=== PATIENT | male | born 1990 | race Caucasian/White ===

== ENCOUNTER 2017-01-19 16:16 | Emergency (ER) | payer MEDICAID ==
[~2017-01-19] VITALS: Ht 160 cm; Wt 76.0 kg
[2017-01-19 16:24] VITALS: Ht 160 cm; Wt 76.0 kg
[2017-01-19] MEDS ORDERED: ALBU18HF INHALATION (16:51)
[2017-01-19] MEDS ORDERED: IBUP-1542 PO (16:51)
[2017-01-19] MEDS ORDERED: BENZ100C70 PO (16:51)
--- NOTE | 2017-01-19 17:02 | ERD ---
ER Documentation Chief Complaint Date/Time DATE: 01/19/17 TIME: 16:55 Chief Complaint sore throat x 4 days HPI 26-year-old male patient with no significant past medical history presents to the ED complaining of sore throat that started 4 days ago and had a dry cough earlier today. States that he has been taking Advil with relief of his symptoms. States that he tried taking Robitussin but it did not help with his cough. Denies any chest pain, shortness of breath, wheezing, abdominal pain, nausea, vomiting, diarrhea, rashes. Denies any sick contacts. ROS All systems reviewed and are negative except as per history of present illness. Medications Home Meds Active Scripts Ibuprofen* (Motrin*) 600 Mg Tab, 600 MG PO Q6, #30 TAB Prov:ERASMO HOWE-C 01/19/17 Albuterol Sulfate* (Ventolin HFA*) 18 Gm Hfa.aer.ad, 2 PUFF INHALATION Q4H, #1 INHALER Prov:ERASMO HOWE PA-C 01/19/17 Benzonatate* (Tessalon Perle*) 100 Mg Capsule, 100 MG PO Q8H Y for COUGH, #20 CAP Prov:ERASMO HOWE-C 01/19/17 PMhx/Soc Hx Substance Use: No (unknown) Physical Exam Vitals Vital Signs Date Time Temp Pulse Resp B/P Pulse Ox O2 Delivery O2 Flow Rate FiO2 01/19/17 16:24 99.7 74 18 132/79 97 Physical Exam Const: [id number]-hulnzaglh, well-nourished. In no acute distress. Head: Atraumatic, normocephalic Eyes: Normal Conjunctiva without injection. No purulent discharge. PERRL. EOMI ENT: Normal external ear. Ear canal without erythema. Tympanic membrane pearly simeon without effusion or bulging. Nasal canal clear with normal turbinates. Moist oropharynx without tonsillar exudates. Non-erythematous pharynx. Uvula midline. No drooling. No trismus. Neck: Full range of motion. No meningismus. No cervical lymphadenopathy. Resp: Clear to auscultation bilaterally. No wheezing, rhonchi, rales, or crackles. No accessory muscle use. No retractions. Cardio: Regular rate and rhythm. No murmurs, rubs or gallops. Abd: Soft, non tender, non distended. Normal bowel sounds. No palpable masses. No rebound tenderness. No guarding. Skin: No petechiae or rashes Back: No midline tenderness. No CVA tenderness. Ext: No cyanosis, or edema. Neur: Awake and alert. Psych: Normal Mood and Affect Procedures/MDM This is a 26-year-old male patient with no significant past medical history presents to the ED complaining of sore throat that started 4 days ago. Patient is afebrile and nontoxic-appearing. Patient has normal vital signs. This patient presents to the ED with symptoms consistent with a viral acute upper respiratory infection. Patient is afebrile and has normal vital signs. Patient 's physical exam include lungs which were clear to auscultation and a normal pulse oximetry. There is a low suspicion for a atypical PR, pneumonia, pneumothorax, cardiac tamponade, dental abscess, Daniel's angina, peritonsillar abscess, foreign body aspiration, mastoiditis, retropharyngeal abscess, epiglottitis, meningitis, sepsis or other emergent conditions. Discharge medications: Ibuprofen, Ventolin, Tessalon Perles Follow up with primary care physician in 1-2 days. Instructed patient to return to the ED sooner for any worsening symptoms. Patient's questions were answered. Patient understood and agreed with discharge plan. Patient discharged stable. Departure Diagnosis: Primary Impression: Sore throat Additional Impression: Cough Condition: Stable Patient Instructions: Self-Care for Sore Throats, Uri, Viral, No Abx (Adult) Referrals: [facility] YOU HAVE RECEIVED A MEDICAL SCREENING EXAM AND THE RESULTS INDICATE THAT YOU DO NOT HAVE A CONDITION THAT REQUIRES URGENT TREATMENT IN THE EMERGENCY DEPARTMENT. FURTHER EVALUATION AND TREATMENT OF YOUR CONDITION CAN WAIT UNTIL YOU ARE SEEN IN YOUR DOCTORS OFFICE WITHIN THE NEXT 1-2 DAYS. IT IS YOUR RESPONSIBILITY TO MAKE AN APPOINTMENT FOR FOLOW-UP CARE. IF YOU HAVE A PRIMARY DOCTOR --you should call your primary doctor and schedule an appointment IF YOU DO NOT HAVE A PRIMARY DOCTOR YOU CAN CALL OUR PHYSICIAN REFERRAL HOTLINE AT IF YOU CAN NOT AFFORD TO SEE A PHYSICIAN YOU CAN CHOSE FROM THE FOLLOWING [facility] [address] [facility]. [facility] [address] [facility] [facility] [address] [facility] [address] [facility] [address] [facility]. [facility]. [address] [facility]. [facility] YOU HAVE RECEIVED A MEDICAL SCREENING EXAM AND THE RESULTS INDICATE THAT YOU DO NOT HAVE A CONDITION THAT REQUIRES URGENT TREATMENT IN THE EMERGENCY DEPARTMENT. FURTHER EVALUATION AND TREATMENT OF YOUR CONDITION CAN WAIT UNTIL YOU ARE SEEN IN YOUR DOCTORS OFFICE WITHIN THE NEXT 1-2 DAYS. IT IS YOUR RESPONSIBILITY TO MAKE AN APPOINTMENT FOR FOLOW-UP CARE. IF YOU HAVE A PRIMARY DOCTOR --you should call your primary doctor and schedule and appointment IF YOU DO NOT HAVE A PRIMARY DOCTOR YOU CAN CALL OUR PHYSICIAN REFERRAL HOTLINE AT . IF YOU CAN NOT AFFORD TO SEE A PHYSICIAN YOU CAN CHOSE FROM THE FOLLOWING [facility] INSTITUTIONS: [facility] [address] [place] [address] [facility] [address] [place] [address] [facility] [address] [place] [address] [facility] URGENT CARE/SPECIALTIES Additional Instructions: Call your primary care doctor TOMORROW for an appointment during the next 2-3 days.See the doctor sooner or return here if your condition worsens before your appointment time. ERASMO HOWE PA-C Jan 19, 2017 17:02 ERASMO HOWE PA-C Jan 19, 2017 17:02
== END 2017-01-19 16:52 | disposition home or self-care (01) ==
LOC: E/R 16:16
DX: J02.9 Acute pharyngitis, unspecified (principal); R05 Cough
CPT/HCPCS: 99284

== ENCOUNTER 2017-12-25 14:32 | Emergency (ER) | END 2017-12-25 16:54 | disposition home or self-care (01) ==

== ENCOUNTER 2018-01-01 11:06 | Emergency (ER) | END 2018-01-01 12:25 | disposition home or self-care (01) ==